=== PATIENT | male | born 1960 | race American Indian/Alaskan Native ===

== ENCOUNTER 2017-12-17 09:34 | Day surgery (SDC) | payer OTHER ==
[2017-12-10 09:44] VITALS: BMI 22.8
[2017-12-17] MEDS ORDERED: Iodixanol 320 MG/ML 200 ML BOTTLE IV ONE ×2 (10:03→14:26)
[2017-12-17] MEDS ORDERED: Iodixanol 320 MG/ML 100 ML BOTTLE IV ONE (10:03)
[2017-12-17] MEDS ORDERED: Midazolam 2 MG/2 ML VIAL ONE ×3 (11:56→12:41)
[2017-12-17] MEDS ORDERED: Labetalol 25mg/5ml Syringe ONE ×2 (12:30→12:31)
[2017-12-17] MEDS ORDERED: Verapamil 2 ML ONE (12:36)
[2017-12-17] MEDS ORDERED: Nitroglycerin 50mg in D5W 50 MG/250 ML BOTTLE IV ONE (12:37)
[2017-12-17] MEDS ORDERED: DiphenhydrAMINE 50 mg/ml Inj ONE (12:50)
[2017-12-17] MEDS ORDERED: ceFAZolin IV 2 gm in Dextrose 2 GM/50 ML BAG IVPB ONE (13:39)
[2017-12-17 22:13] VITALS: TEMP 98.8
[2017-12-17 22:15] VITALS: O2SAT 100
[2017-12-17 23:08] VITALS: BP 162/72; PULSE 91; RESP 20
--- NOTE | 2017-12-18 14:48 | VAS ---
DATE: 12/17/2017 INDICATIONS: Mr. Monroe is a 57-year-old male who was admitted to [facility] with a progressive nonhealing wound of the right lower extremity. 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 He was therefore brought for further evaluation and treatment of critical limb ischemia and a nonhealing wound of the right toe. PROCEDURES PERFORMED: Distal abdominal aortogram with bilateral iliac runoff; selective bilateral iliofemoral angiogram with runoff, atherectomy, percutaneous transluminal angioplasty and stenting of right superficial femoral artery with use of 2.0 solid CSI atherectomy device, additional balloon angioplasty with 5.0, 6.0, and 7.0 balloon, stenting of mid superficial femoral artery with use of 7.0 x 140 Zilver PTX stent with lesion reduction from 100% down to 0%, percutaneous transluminal angioplasty and stenting of right popliteal artery with use of 4.0 x 30 [place] drug-eluting stent, lesion reduction from 80% down to 0% with JAMARCUS-3 flow, percutaneous transluminal angioplasty and stenting of right peroneal artery with use of a 5 x 34 [place] drug-eluting stent with lesion reduction from 100% down to 0% with JAMARCUS-3 flow, 7-Samoan left femoral arterial access, manual pressure for hemostasis. ANGIOGRAPHIC FINDINGS OF LEFT LOWER EXTREMITY: Left common femoral is patent with a focal calcific lesion, profunda femoris patent with moderate diffuse calcific tandem lesions, SFA 100% stump occlusion, distal reconstitution of the collateral flow feeding the popliteal with one-vessel runoff [id number]. [id number] vessels are non-visualized secondary to severe infrageniculate disease. Left common iliac patent, external iliac focal calcified lesion, moderate stenosis. Right common iliac patent, external iliac patent, profunda femoris moderate diffuse calcific disease, SFA 100% stump occlusion. Distal reconstitution of the popliteal via the collateral at the exit of the James's canal. Popliteal has a focal calcific high-grade 80% stenosis, one-vessel runoff [id number] and peroneal, collateral flow noted in the PT. TECHNIQUES OF INTERVENTION: At this point, a 7-Samoan 45 cm Destination [place] sheath was used to cross the aortoiliac bifurcation and was lodged into the right common femoral artery. The proximal cap was ruptured using the wire loop technique. At this point with stepwise progression, the LASER SET UP OPERATOR was recanalized using the catheter loop technique and was in the true lumen and was recanalized. Distal placement was confirmed with an angiogram with a 0.035 . At this point, Viper 0.014 to 0.017 wire was advanced and a NAV6 distal protection device was deployed at the level of the TP trunk. Subsequently, a 2.0 CSI atherectomy of the SFA was done and then a balloon angioplasty with the 5.0 and 6.0 balloons were done. Subsequently, angioplasty with a 7.0 balloon was done, which restored the flow. At this point, distal flow was noted to be occlusive. The distal protection was retrieved and angiogram was obtained. We ensured the distal embolization of the wire in the peroneal. TPA was injected and subsequently the peroneal was stented with a 3.0 x 30 mm Edgar drug-eluting stent at this point, a pullback gradient was noted at the popliteal occlusion. A 4.0 x 34 mm Edgar stent was deployed at the popliteal and subsequently pullback gradients in the SFA were recorded. Mid SFA had a 30 mm gradient, which was stented with a 7 x 120 mm Zilver PTX self-expanding stent. Subsequently, the ostial SFA calcific disease had 20 mm pressure gain. Because of the branching of the profunda femoris, it was decided to do a balloon angioplasty with a drug-coated balloon, which was a done with a 7.0 x 30 mm. Final angiogram showed lesion reduction down to 0% with good JAMARCUS-3 flow. IMPRESSION: Successful revascularization of the right superficial femoral artery 100% chronic total occlusion with use of CSI atherectomy balloon angioplasty and stenting with a 7.0 x 120 mm Zilver PTX stent, percutaneous transluminal angioplasty stenting of focal popliteal calcific lesion with use of 4.0 x 30 mm [place] drug-eluting stent, percutaneous transluminal angioplasty stenting of a distal thromboembolic embolism in the peroneal with the use of 3.0 x 30 Edgar drug-eluting stent. RECOMMENDATIONS: The patient is to be kept on dual antiplatelet therapy, guideline-directed medical therapy for peripheral vascular disease. Keep the patient on ANGELIC inhibitors, statins, plus/minus beta blockers. The patient can proceed with planned TMA procedure and keep close surveillance with arterial duplex. The patient should be evaluated for possible stage intervention of the left SFA disease. Donavon Vasquez MD cc: Alvaro Spencer DPM
== END 2017-12-17 23:00 | disposition short-term general hospital (02) ==
LOC: C.CATHLAB 09:34
PROVIDERS: ATTEND Internal Medicine Interventional Cardiology
DX: I70.92 Chronic total occlusion of artery of the extremities (principal); S91.104A Unspecified open wound of right lesser toe(s) without damage to nail, initial encounter; X58.XXXA Exposure to other specified factors, initial encounter; I70.201 Unspecified atherosclerosis of native arteries of extremities, right leg
CPT/HCPCS: 36247; 37212; 37227; 37231; 75625; 75716; 75774; 82948; C1714; C1725; C1766; C1769; C1874; C1884; C1887; C1894; J0360; J0690; J1170; J1200; J1644; J2250; J2997; J3010; Q9966; Q9967

== ENCOUNTER 2018-05-08 08:19 | Day surgery (SDC) | payer OTHER ==
[2018-05-08 11:03] VITALS: BMI 22.1
[2018-05-08] MEDS ORDERED: Lidocaine 2% MPF (5 ml) Inj ONE (11:05)
[2018-05-08] MEDS ORDERED: Iodixanol 320 MG/ML 200 ML BOTTLE IV ONE ×2 (11:07→12:15)
[2018-05-08] MEDS ORDERED: Sodium Chloride 0.9% 1,000 ML IV SCH (11:15)
[2018-05-08] MEDS ORDERED: Midazolam 2 MG/2 ML VIAL ONE ×3 (11:22→12:04)
[2018-05-08] MEDS ORDERED: Verapamil 2 ML ONE (12:29)
[2018-05-08] MEDS ORDERED: DiphenhydrAMINE 50 mg/ml Inj ONE (12:46)
[2018-05-08] MEDS ORDERED: Nitroglycerin 50mg in D5W 50 MG/250 ML BOTTLE IV ONE (12:50)
--- NOTE | 2018-05-10 08:56 | VAS ---
DATE: 05/08/2018 INDICATIONS: The patient is a 58-year-old male who presented to [facility] with complaints of worsening gangrene of the left lower extremity second and third digits. He underwent noninvasive evaluation with SEED BUYER and was noted to have severe SFA occlusion and therefore was brought to the clinical lab scientist for evaluation and treatment. PROCEDURES PERFORMED: Distal abdominal aortogram with bilateral iliac runoff, selective bilateral iliofemoral angiogram with runoff, percutaneous transluminal angioplasty atherectomy of left superficial femoral artery 100% chronic total occlusion, deployment of 1.5 CSI atherectomy device, additional balloon angioplasty with a drug-coated balloon. Lesion reduction from 100% down to 0% to JAMARCUS 3 flow, 6-Estonian right femoral arterial access, and Mynx closure device for hemostasis. ANGIOGRAPHIC FINDINGS: Right common iliac and external iliac were patent. Profunda femoris patent. SFA occluded. 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 Left lower extremity and left common iliac patent. Internal iliac is 100% occluded. External iliac, mild stenosis. Profunda femoris patent with [id number] atherosclerotic calcific lesion. SFA ostia is 100% occluded. SFA 100% occluded all the way up to the popliteal where it is revascularized via the collateral flow from the profunda femoris feeding the collateral to the popliteal, two-vessel runoff below the anterior tibial and peroneal SEED BUYER 100% occluded. INTERVENTION PERFORMED: Using a 6-fijian 45 cm Destination [place] sheath, initially 0.35 Glidewire Advantage was used to cross the proximal cath of the chronic total occlusion. Subsequently using 0.18 support catheter, gold-tip Glidewire was negotiated to the suboptimal space and then to the luminal space. Subsequently, a ASSEMBLY MACHINE OPERATOR wire was used to cross the distal calcific lesion. At this point, lesion was recanalized into the true lumen in the left popliteal and angiogram was performed to confirm the distal flow at this point. A Viper wire was advanced up to the infragenicular vessels. A 1.5 atherectomy of the CSI was done. Subsequently, balloon angioplasty with a 5 x 150 and a 4 x 150 drug-coated balloons were done with lesion reduction up to 0%. Final angiogram was done showing good JAMARCUS 3 flow to the SFA and feeding the infragenicular vessels. The infragenicular anatomy showed anterior tibial artery at proximal to moderate 60% stenosis. The digital arches had diffuse disease. IMPRESSION: Successful revascularization of the left superficial femoral artery 100% occlusion with the use of 1.5 CSI atherectomy. Additional balloon angioplasty with a . RECOMMENDATIONS: The patient can be transferred back to [facility] in three to four hours. Keep the patient on dual antiplatelet therapy. Continue the patient on aspirin, statins, beta-blockers and ANGELIC inhibitors. Donavon Vasquez MD
== END 2018-05-08 17:05 | disposition short-term general hospital (02) ==
LOC: UNDOADMIN 08:19 → C.9S 08:19 → C.CATHLAB 08:19 → EDSTATUS 10:00 → C.CATHLAB 17:05
PROVIDERS: ATTEND Internal Medicine Interventional Cardiology
DX: E11.52 Type 2 diabetes mellitus with diabetic peripheral angiopathy with gangrene (principal); I70.262 Atherosclerosis of native arteries of extremities with gangrene, left leg; I70.92 Chronic total occlusion of artery of the extremities; I10 Essential (primary) hypertension; F17.210 Nicotine dependence, cigarettes, uncomplicated
CPT/HCPCS: 37225; 82948; J1200; J1644; J1885; J2250; J3010; Q9966